=== PATIENT | female | born 1955 | race Caucasian/White ===

== ENCOUNTER → 2017-07-19 | Outpatient (CLI) | payer BC ==
--- NOTE | 2017-07-19 10:57 | US ---
HISTORY: Thyroid nodule Study: Thyroid ultrasound: Multiplanar ultrasonographic examination of the thyroid was performed. Comparison: CT of the neck 02/21/2016, CT of the chest 05/08/2015 Findings: On the images submitted to pr the left lobe of the thyroid has been surgically resected. The thyroid bed as visualized is normal. The right lobe of the thyroid is small and mildly heterogeneous. It measures 2.4 cm in length by 1.4 x 1.7 cm. There is a hypoechoic nodule present that is fairly well defined. This nodule measures 1 .2 x 1.1 x 0.6 cm. Further evaluation is recommended. Isthmus: Normal thickness at 2.6 mm. IMPRESSION: 1. The patient is status post left thyroidectomy. 2. Fairly well circumscribed nodule in the right lobe. This appears to be solid. Further evaluatio n with fine-needle aspiration is recommended. Reported By:
--- NOTE | 2017-07-19 13:04 | CT ---
HISTORY: Shortness of breath, history of smoking, pulmonary nodule Study: CT chest with contrast Comparison: 05/08/2015 Technique: Multiple axial images of the chest were obtained from the thoracic inlet to the upper abdo men after the administration of IV contrast. Dose reduction techniques including Automated Exposure Control (AEC) and adjustment of mA and kV were utilized. Findings: There is a stable 6 mm right apical pulmonary nodule along the major fissure likely representing a be nign intrafissural lymph node. No new mass or adenopathy is seen. No vascular abnormality is identifi ed. Normal appearance of the heart and pericardium. The aorta appears normal in course and caliber. T here are chronic emphysematous changes present without acute infiltrate, effusion or pneumothorax. rways are patent. The soft tissues and osseous structures appear intact. There is a stable appearing partially visualiz ed right adrenal lesion that measuring 2.3 cm with well-circumscribed borders. IMPRESSION: 1. Stable right apical 6 mm nodule along the major fissure likely representing a benign intrafissural lymph node. 2. Chronic emphysematous changes. 3. Stable appearing, partially visualized right adrenal lesion, statistically most likely representin g an adrenal adenoma. This could be further characterized with adrenal protocol MRI on a nonemergent basis. Reported By:
== END | disposition home or self-care (01) | DRG 645 ==
LOC: RAD 08:55
PROVIDERS: ATTEND Internal Medicine
DX: E04.8 Other specified nontoxic goiter (principal); E04.1 Nontoxic single thyroid nodule; R91.8 Other nonspecific abnormal finding of lung field; R91.1 Solitary pulmonary nodule
CPT/HCPCS: 71260; 76536